=== PATIENT | male | born 1945 | race Caucasian/White ===

== ENCOUNTER → 2016-08-27 | Outpatient (CLI) | payer BC ==
[~2016-08-27] MED LIST: CHOL100027 PO; MULT-618 PO
--- NOTE | 2016-08-27 08:29 | DIAGNOSTIC IMAGING REPORT ---
ABDOMINAL ULTRASOUND COMPLETE HISTORY: Pain AB PAIN. COMPARISON: 01/29/2013 FINDINGS: Pancreas: The pancreas demonstrates a normal echotexture. Liver: Negative Gallbladder: No gallbladder wall thickening. No gallstones. CBD: 3 mm Kidneys: No hydronephrosis. Spleen: Normal in size. Aorta: Normal in caliber. IVC: Patent. IMPRESSION: No significant abnormality identified within the within the abdomen. Electronically signed by: Noah Cowart M.D. 08/27/2016 8:28 AM Dictated Date/Time: 08/27/2016 8:26 AM
== END | disposition home or self-care (01) ==
LOC: C.ULTR 07:58
PROVIDERS: ATTEND Internal Medicine Gastroenterology
DX: R10.9 Unspecified abdominal pain (principal); K59.00 Constipation, unspecified

== ENCOUNTER → 2016-12-10 | Outpatient (CLI) | payer BC | END | disposition home or self-care (01) | LOC: C.MAMM 13:08 | PROVIDERS: ATTEND Internal Medicine Geriatric Medicine | DX: M85.89 Other specified disorders of bone density and structure, multiple sites (principal) ==

== ENCOUNTER → 2016-12-14 | Outpatient (CLI) | payer BC | END | disposition home or self-care (01) | LOC: C.LABBC 15:25 | PROVIDERS: ATTEND Psychiatry & Neurology Neurology | DX: I67.9 Cerebrovascular disease, unspecified (principal); R41.9 Unspecified symptoms and signs involving cognitive functions and awareness ==

== ENCOUNTER → 2017-06-22 | Outpatient (CLI) | payer BC ==
--- NOTE | 2017-06-22 16:15 | DIAGNOSTIC IMAGING REPORT ---
L-SPINE MIN 4 VIEWS ROUTINE HISTORY: Pain LOWER BACK PAIN COMPARISON: None. FINDINGS: There is no fracture. No subluxation. Mild degenerative disc change throughout. No evidence for compression deformity. IMPRESSION: Mild degenerative disc change. No acute process. The above report was generated using voice recognition software. It may contain grammatical, syntax or spelling errors. Electronically signed by: Noah Cowart M.D. 06/22/2017 4:14 PM Dictated Date/Time: 06/22/2017 4:14 PM
== END | disposition home or self-care (01) ==
LOC: C.RADBC 15:27
PROVIDERS: ATTEND Internal Medicine Geriatric Medicine
DX: M54.10 Radiculopathy, site unspecified (principal); M54.5 Low back pain

== ENCOUNTER → 2017-06-28 | Outpatient (CLI) | payer BC ==
--- NOTE | 2017-06-28 10:22 | DIAGNOSTIC IMAGING REPORT ---
LUMBAR SPINE WITHOUT CT DOSE: 572.39 mGy.cm HISTORY: Pain. Radiculopathy. LUMBAR RADICULOPATHY TECHNIQUE: Multiaxial CT images of the lumbar spine were performed and reformatted in the sagittal and coronal plane without the use of contrast. A dose lowering technique was utilized adhering to the principles of ALARA. COMPARISON: None. FINDINGS: Vertebral body stature is considered normal throughout. Intervertebral disc spaces are well-preserved. L1-L2: No evidence for disc herniation or spinal stenosis. L2-L3: Minimal broad-based disc bulge. L3-L4. Mild broad-based disc bulge. L4-L5.: Moderate multifactorial narrowing of the spinal canal. Broad-based bulging disc. Mild narrowing neuroforamina bilaterally. L5-S1 mild central bulging disc. IMPRESSION: 1. Normal appearance to the vertebral bodies as well as intervertebral disc. 2. Multilevel bulging disc with mild multifactorial narrowing of the spinal canal at L4-L5 3. No evidence for a high-grade component of spinal or foraminal stenosis. The above report was generated using voice recognition software. It may contain grammatical, syntax or spelling errors. Electronically signed by: Noah Cowart M.D. 06/28/2017 10:21 AM Dictated Date/Time: 06/28/2017 10:16 AM
== END | disposition home or self-care (01) ==
LOC: C.CTS 09:54
PROVIDERS: ATTEND Internal Medicine Geriatric Medicine
DX: M54.16 Radiculopathy, lumbar region (principal)

== ENCOUNTER 2017-09-14 22:02 | Emergency (ER) | payer BC ==
[~2017-09-14] VITALS: Ht 165.1 cm; Wt 66.0 kg
[2017-09-14 22:04] VITALS: Ht 165.1 cm; Wt 66.0 kg
--- NOTE | 2017-09-14 22:41 | EMERGENCY ROOM VISIT NOTE ---
History Report prepared by Nichol: Cong Krueger Under the Supervision of: Dr. Nino Wooten M.D. First contact with patient: 22:16 Chief Complaint: CARDIAC ASSESSMENT Stated Complaint: CHEST DISCOMFORT;PACE MAKER History of Present Illness The patient is a 72 year old male who presents to the Emergency Room with complaints of intermittent excruciating sharp upper back pain that began about 30 minutes ago. His pain is currently significantly improved compared to when it began at a 2/10 in severity. He has a past medical history of a pacemaker in place and a circulatory problem in his left fingers. He denies any history of smoking, heart attacks, or diabetes. About a half hour ago, the patient was watching the [employer] when he suddenly experienced this pain between his shoulder blades. He also received a pain to her sternum as well. He notes that he ate spicy food and drank a beer 2.5 hours prior to this. He notes that he believes that he experienced this pain before, but it has never been this bad. After the pain began, the patient tried to relieve it with Tums and Mylanta without relief. He states that nothing made his pain better or worse. He denies any fevers, lightheadedness, dizziness, shortness of breath, abdominal pain, nausea, vomiting, weakness, numbness, leg swelling, or leg pain. He still has his gallbladder. He denies any recent long travel. He denies any blood thinner use. Source of History: patient Onset: 30 minutes ago Position: back (upper) Symptom Intensity: 2/10 Quality: sharp Timing: intermittent Associated Symptoms: + chest pain (sternal), No fevers, No SOB, No nausea, No vomiting, No weakness, No numbness Review of Systems See HPI for pertinent positives & negatives. A total of 10 systems reviewed and were otherwise negative. Past Medical & Surgical Medical Problems: (1) Bradycardia (2) Melanoma in situ (3) Obstruction of intestine (4) PAC (premature atrial contraction) (5) RBBB Surgical Problems: (1) S/P hernia repair Old medical records were reviewed. Nurse's notes were reviewed and I agree with. Family History Patient reports no known family medical history. Social History Smoking Status: Never Smoker Smokeless Tobacco Use: No Alcohol Use: occasionally Drug Use: none Marital Status: Housing Status: lives with family Occupation Status: retired Current/Historical Medications Scheduled Cholecalciferol (Vitamin D 1000 Unit), 1,000 INTER.UNIT PO DAILY Multiple Vitamins W/ Minerals (Centrum Silver Ultra Mens), 1 TAB PO DAILY Allergies Coded Allergies: Sulfa Antibiotics (Verified Allergy, Unknown, "SULFA DRUGS"-"HAPPENED A LONG TIME AGO"., 09/14/17) Physical Exam Vital Signs Date Time Temp Pulse Resp B/P (MAP) Pulse Ox O2 Delivery O2 Flow Rate FiO2 09/15/17 00:51 62 16 137/84 100 Room Air 09/15/17 00:04 63 16 129/81 98 Room Air 09/14/17 22:57 67 16 148/81 99 Room Air 09/14/17 22:43 61 09/14/17 22:26 99 Room Air 09/14/17 22:25 66 09/14/17 22:04 36.6 62 16 152/86 96 Room Air Physical Exam General: Non-ill appearing older male in no acute distress. HEENT: Normal cephalic atraumatic. Pupils are equal round and reactive to light. Extraocular movements are intact. Oropharynx is pink with moist mucous membranes. No swelling of the mouth lips or tongue. Neck: Supple with a midline trachea. No meningeal signs or stiffness, no JVD or bruits. No Stridor. Chest: Clear to auscultation bilaterally. No wheezes or rhonchi. No increased work of breathing. Pacemaker to the left upper chest. Heart: regular rate and rhythm. Abdomen: Soft nontender, nondistended without rebound guarding or rigidity. Extremities: No cyanosis clubbing or edema. No calf tenderness or assymetry. No swelling to the LUE. Normal pulse. Normal capillary refill. Spine/Back. Non tender to palpation. No CVA tenderness Skin: Good turgor without rashes. Neurologic exam: Cranial nerves two through 12 are intact. Motor and sensation are intact and symmetrical throughout. Medical Decision & Procedures ER Provider Diagnostic Interpretation: Radiology results as stated below per my review and radiologist interpretation: SINGLE VIEW CHEST CLINICAL HISTORY: Atypical chest pain. FINDINGS: An AP, portable, upright chest radiograph is compared to study dated 07/08/2016. The examination is mild degraded by portable technique and patient rotation. A 2-lead cardiac pacemaker is unchanged in position and partially obscures the left upper chest. The heart is mildly enlarged and there is atherosclerotic calcification of the thoracic aorta. The pulmonary vascular is noncongested. Bibasilar atelectasis is noted. No airspace consolidation or large pleural effusion is identified. No pneumothorax is seen. The skeletal structures are osteopenic. The bony thorax is grossly intact. IMPRESSION: 1. Cardiomegaly and cardiac pacemaker. There is no radiographic evidence of congestive failure. 2. No airspace consolidation or large pleural effusion is identified. Electronically signed by: Checo Cuello M.D. 09/14/2017 10:58 PM Dictated Date/Time: 09/14/2017 10:[address]: No evidence of PE or aortic dissection. Please refer to report Laboratory Results 09/14/17 22:20 Red Blood Count 4.70, Mean Corpuscular Volume 89.6, Mean Corpuscular Hemoglobin 31.7, Mean Corpuscular Hemoglobin Concent 35.4, Mean Platelet Volume 9.0, Neutrophils (%) (Auto) 47.0, Lymphocytes (%) (Auto) 41.0, Monocytes (%) (Auto) 9.7, Eosinophils (%) (Auto) 1.7, Basophils (%) (Auto) 0.4, Neutrophils # (Auto) 3.78, Lymphocytes # (Auto) 3.30, Monocytes # (Auto) 0.78, Eosinophils # (Auto) 0.14, Basophils # (Auto) 0.03 09/14/17 22:20 Test 09/14/17 22:20 09/14/17 22:32 09/14/17 23:44 White Blood Count 8.05 K/uL (4.8-10.8) Red Blood Count 4.70 M/uL (4.7-6.1) Hemoglobin 14.9 g/dL (14.0-18.0) Hematocrit 42.1 % (42-52) Mean Corpuscular Volume 89.6 fL (80-100) Mean Corpuscular Hemoglobin 31.7 pg (25-34) Mean Corpuscular Hemoglobin Concent 35.4 g/dl (32-36) Platelet Count 191 K/uL (130-400) Mean Platelet Volume 9.0 fL (7.4-10.4) Neutrophils (%) (Auto) 47.0 % Lymphocytes (%) (Auto) 41.0 % Monocytes (%) (Auto) 9.7 % Eosinophils (%) (Auto) 1.7 % Basophils (%) (Auto) 0.4 % Neutrophils # (Auto) 3.78 K/uL (1.4-6.5) Lymphocytes # (Auto) 3.30 K/uL (1.2-3.4) Monocytes # (Auto) 0.78 K/uL (0.11-0.59) Eosinophils # (Auto) 0.14 K/uL (0-0.5) Basophils # (Auto) 0.03 K/uL (0-0.2) RDW Standard Deviation 43.1 fL (36.4-46.3) RDW Coefficient of Variation 13.1 % (11.5-14.5) Immature Granulocyte % (Auto) 0.2 % Immature Granulocyte # (Auto) 0.02 K/uL (0.00-0.02) Prothrombin Time 10.5 SECONDS (9.0-12.0) Prothromb Time International Ratio 1.0 (0.9-1.1) Activated Partial Thromboplast Time 26.4 SECONDS (21.0-31.0) Partial Thromboplastin Ratio 1.0 Anion Gap 6.0 mmol/L (3-11) Est Creatinine Clear Calc Drug Dose 45.7 ml/min Estimated GFR () 64.2 Estimated GFR (Non- 55.4 BUN/Creatinine Ratio 18.0 (10-20) Calcium Level 8.7 mg/dl (8.5-10.1) Total Bilirubin 0.4 mg/dl (0.2-1) Direct Bilirubin 0.1 mg/dl (0-0.2) Aspartate Amino Transf (AST/SGOT) 27 U/L (15-37) Alanine Aminotransferase (ALT/SGPT) 35 U/L (12-78) Alkaline Phosphatase 57 U/L (45-117) Total Creatine Kinase 120 U/L (39-308) Creatine Kinase MB 2.1 ng/ml (0.5-3.6) Total Protein 7.2 gm/dl (6.4-8.2) Albumin 3.8 gm/dl (3.4-5.0) Lipase 190 U/L (73-393) Creatine Kinase MB Ratio (0-3.0) Bedside Troponin I < 0.030 ng/ml (0-0.045) Laboratory studies as stated above per my review. ECG Per My Interpretation Indication: chest pain, back/shoulder pain Rate (beats per minute): 70 Rhythm: other (Atrial Paced) Findings: no acute ischemic change, other (No significant prolongation of QTC) Comparison ECG Date: Jul 07, 2016 Change: Atrial paced has now replaced ventricular paced 2nd ECG: Normal sinus rhythm at 62, no ischemic changes or ectopy. RBBB. Compared to the first ECG, NSR has replaced atrial paced rhythm. ED Course 221: Past medical records reviewed. The patient was evaluated in room C11, and a complete history and physical examination were performed. 2316: The patient appears to be comfortable at this time. He does not need anything for his pain. 2353: Upon reevaluation, the patient is resting comfortably. Medical Decision Differentials include, but are not limited to; acute coronary syndrome, arrhythmia, GERD, anxiety, and aortic dissection. This patient comes in as described above. He had spicy food and a beer earlier tonight and had some pain in his abdomen into his back. It was sharp and he feels a lot better now he did take some Maalox. He has minimal discomfort at present. There is no shortness of breath or associated symptoms. He does have a pacemaker but has no other cardiac disease known he had no syncope or lightheadedness or dizziness. EKG shows a paced rhythm without ischemic changes at his second EKG and it shows a normal sinus rhythm without ischemic changes of a baseline right bundle branch block. This was old when compared to previous EKGs. Chest x-ray was unremarkable. His initial troponin was 0. A follow-up troponin was also 0. There is no change between the EKGs or troponins. I did a chest CT. He has no white count or fever to suggest infection is no acute electrolyte or metabolic abnormality. He has nothing to suggest liver, gallbladder, or pancreas disease. He has no shortness of breath or anything to suggest PE. The chest CT shows no evidence of dissection or PE or any other pulmonary problem. Most likely his symptoms are GI related I talked to both the patient and his at length he cannot 100% rule out cardiac disease he strongly desires to go home. I think that is reasonable at this point with close follow-up recommended follow-up with his doctor Dr. Hughes or his lpn private duty Dr. Burgess in the next day or so and if deemed necessary he may ultimately need a stress test. He should return to the ER if increasing pain, worsening symptoms, any new problems or concerns and have a mild diet. The patient and his were happy with the plan and he was discharged home. Medication Reconcilliation Current Medication List: was personally reviewed by me Blood Pressure Screening Patient's blood pressure: Normal blood pressure Blood pressure disposition: Did not require urgent referral Impression Primary Impression: Epigastric abdominal pain Scribe Attestation The scribe's documentation has been prepared under my direction and personally reviewed by me in its entirety. I confirm that the note above accurately reflects all work, treatment, procedures, and medical decision making performed by me. Departure Information Dispostion Home / Self-Care Referrals Ming Hughes M.D. (PCP) Forms IMPORTANT VISIT INFORMATION Patient Instructions My [facility]
[2017-09-14 22:44] LABS: BASO % 0.4 %; BASO ABS # 0.03 K/uL (0-0.2); EOS % 1.7 %; EOS ABS # 0.14 K/uL (0-0.5); HEMATOCRIT 42.1 % (42-52); HEMOGLOBIN 14.9 g/dL (14.0-18.0); IG# 0.02 K/uL (0.00-0.02); MEAN CELL VOLUME 89.6 fL (80-100); MEAN CORPUSCULAR HEMOGLOBIN 31.7 pg (25-34); MEAN CORPUSCULAR HGB CONC 35.4 g/dl (32-36); MONO % 9.7 %; MONO ABS # 0.78 K/uL (0.11-0.59); NEUT ABS # 3.78 K/uL (1.4-6.5); PLATELET COUNT 191 K/uL (130-400); RED CELL DISTRIBUTION WIDTH CV 13.1 % (11.5-14.5); RED CELL DISTRIBUTION WIDTH SD 43.1 fL (36.4-46.3); WHITE BLOOD COUNT 8.05 K/uL (4.8-10.8)
[2017-09-14 22:52] LABS: ALBUMIN 3.8 gm/dl (3.4-5.0); CALCIUM 8.7 mg/dl (8.5-10.1); CREATININE 1.29 mg/dl (0.60-1.40); POTASSIUM 3.6 mmol/L (3.5-5.1)
[2017-09-14 22:57] LABS: CKMB 2.1 ng/ml (0.5-3.6); TOTAL PROTEIN 7.2 gm/dl (6.4-8.2)
[2017-09-14 22:59] LABS: PTT PATIENT 26.4 SECONDS (21.0-31.0)
--- NOTE | 2017-09-14 22:59 | DIAGNOSTIC IMAGING REPORT ---
SINGLE VIEW CHEST CLINICAL HISTORY: Atypical chest pain. FINDINGS: An AP, portable, upright chest radiograph is compared to study dated 07/08/2016. The examination is mild degraded by portable technique and patient rotation. A 2-lead cardiac pacemaker is unchanged in position and partially obscures the left upper chest. The heart is mildly enlarged and there is atherosclerotic calcification of the thoracic aorta. The pulmonary vascular is noncongested. Bibasilar atelectasis is noted. No airspace consolidation or large pleural effusion is identified. No pneumothorax is seen. The skeletal structures are osteopenic. The bony thorax is grossly intact. IMPRESSION: 1. Cardiomegaly and cardiac pacemaker. There is no radiographic evidence of congestive failure. 2. No airspace consolidation or large pleural effusion is identified. Electronically signed by: Checo Cuello M.D. 09/14/2017 10:58 PM Dictated Date/Time: 09/14/2017 10:57 PM
[2017-09-14] MEDS ORDERED: OPTIRAY 320 IV PRN (23:30)
[2017-09-15 00:51] VITALS: BP 137/84; PULSE 62; O2SAT 100
--- NOTE | 2017-09-15 06:59 | DIAGNOSTIC IMAGING REPORT ---
CHEST COMBO ANGIO DISSECTION CLINICAL HISTORY: Chest discomfort. Pacemaker. COMPARISON STUDY: Chest radiograph July 08, 2016. TECHNIQUE: Unenhanced and arterial phase imaging of the chest was performed. Injection of 92 cc Optiray 320 IV was uneventful. Sagittal and coronal reconstructions were reviewed as well as maximal intensity projections on an independent 3-D workstation. FINDINGS: A dual lead left-sided pacemaker is in place. The caliber of the thoracic aorta is normal. There is no evidence for intramural hematoma or dissection within the thoracic aorta. Size of the heart is at the upper limits of normal. There is moderate coronary artery calcification. A small hiatal hernia is noted. No pneumomediastinum is present. No enlarged thoracic lymph nodes are present. Central airways are patent. There is no consolidation to suggest pneumonia. Linear and groundglass opacities reflect atelectasis. Bony thorax is unremarkable. 1 cm hypervascular splenic lesion was present on CT of August 03, 2006. Therefore, this is benign. No central pulmonary emboli are identified. The remainder of the pulmonary arteries are suboptimally assessed due to suboptimal opacification. IMPRESSION: 1. No thoracic aortic dissection. 2. No acute intrathoracic findings. Electronically signed by: Humberto Rebolledo M.D. 09/15/2017 6:58 AM Dictated Date/Time: 09/15/2017 6:51 AM
== END 2017-09-15 01:02 | disposition home or self-care (01) ==
LOC: C.EDB 22:04 → C.EDC 09-15 01:02
DX: R10.13 Epigastric pain (principal); I45.10 Unspecified right bundle-branch block; Z95.0 Presence of cardiac pacemaker; Z87.19 Personal history of other diseases of the digestive system; Z88.2 Allergy status to sulfonamides

== ENCOUNTER → 2017-11-26 | Outpatient (CLI) | payer BC ==
[2017-11-26 11:37] LABS: BLOOD UREA NITROGEN 20 mg/dl (7-18); CALCIUM 8.8 mg/dl (8.5-10.1); CARBON DIOXIDE 31 mmol/L (21-32); CREATININE 1.09 mg/dl (0.60-1.40); GLUCOSE 118 mg/dl (70-99); POTASSIUM 4.3 mmol/L (3.5-5.1); SODIUM 136 mmol/L (136-145)
[2017-11-26 11:43] LABS: CHOLESTEROL 239 mg/dl (0-200); LDL CHOLESTEROL CALCULATED 152 mg/dl
== END | disposition home or self-care (01) ==
LOC: C.LABBC 08:44
PROVIDERS: ATTEND Internal Medicine Geriatric Medicine
DX: E78.5 Hyperlipidemia, unspecified (principal); N40.1 Benign prostatic hyperplasia with lower urinary tract symptoms; R03.0 Elevated blood-pressure reading, without diagnosis of hypertension

== ENCOUNTER → 2018-02-10 | Outpatient (CLI) | payer BC ==
[2018-02-10 17:11] LABS: BASO % 0.3 %; BASO ABS # 0.02 K/uL (0-0.2); EOS % 0.3 %; EOS ABS # 0.02 K/uL (0-0.5); HEMATOCRIT 43.1 % (42-52); HEMOGLOBIN 15.1 g/dL (14.0-18.0); IG# 0.02 K/uL (0.00-0.02); LYMPH % 25.7 %; LYMPH ABS # 2.01 K/uL (1.2-3.4); MEAN CORPUSCULAR HEMOGLOBIN 31.5 pg (25-34); MEAN PLATELET VOLUME 9.7 fL (7.4-10.4); MONO % 7.7 %; NEUT % 65.7 %; NEUT ABS # 5.15 K/uL (1.4-6.5); PLATELET COUNT 214 K/uL (130-400); RED CELL DISTRIBUTION WIDTH SD 42.7 fL (36.4-46.3); WHITE BLOOD COUNT 7.82 K/uL (4.8-10.8)
[2018-02-10 17:31] LABS: ALBUMIN 3.9 gm/dl (3.4-5.0); ALKALINE PHOSPHATASE 55 U/L (45-117); ALT/SGPT 25 U/L (12-78); AST/SGOT 22 U/L (15-37); BLOOD UREA NITROGEN 15 mg/dl (7-18); CALCIUM 8.7 mg/dl (8.5-10.1); CARBON DIOXIDE 29 mmol/L (21-32); CREATININE 0.96 mg/dl (0.60-1.40); GLUCOSE 107 mg/dl (70-99); POTASSIUM 3.9 mmol/L (3.5-5.1); SODIUM 134 mmol/L (136-145); TOTAL PROTEIN 7.2 gm/dl (6.4-8.2)
[2018-02-11 06:50] LABS: HEMOGLOBIN A1C 5.7 % (4.5-5.6)
== END | disposition home or self-care (01) ==
LOC: C.LABBC 15:10
PROVIDERS: ATTEND Internal Medicine Geriatric Medicine
DX: R00.2 Palpitations (principal); G31.84 Mild cognitive impairment of uncertain or unknown etiology; I67.9 Cerebrovascular disease, unspecified; R73.9 Hyperglycemia, unspecified; M47.812 Spondylosis without myelopathy or radiculopathy, cervical region

== ENCOUNTER → 2018-02-22 | Outpatient (CLI) | payer BC ==
[~2018-02-22] MED LIST changes: +GADAVIST IV PRN
--- NOTE | 2018-02-22 13:59 | DIAGNOSTIC IMAGING REPORT ---
Brain MRI WITH AND WITHOUT CONTRAST HISTORY: Headache. G31.84 Mild cognitive [id number] Cerebrovascular diseaseMRI TECHNIQUE: Multiplanar multisequence MRI of the brain was performed both before and after the intravenous administration of contrast. COMPARISON STUDY: Brain MRI 06/12/2015. FINDINGS: There is no mass, hematoma, midline shift, or acute infarct. The paranasal sinuses are clear. The mastoid air cells are clear. The ventricles and sulci demonstrate mild age-related involutional changes. Scattered foci of T2 hyperintensity seen within the periventricular and subcortical white matter are nonspecific but suggestive of moderate microvascular ischemic changes. This is similar to the prior study. 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 The major vascular flow voids at the skull base are well-maintained. No abnormal enhancement. IMPRESSION: 1. No significant change compared to the prior study. 2. No acute intracranial abnormality. 3. Moderate microvascular ischemic changes are again noted. 4. Old right basal ganglia infarct. Electronically signed by: Gildardo Bruno M.D. 02/22/2018 1:58 PM Dictated Date/Time: 02/22/2018 1:40 PM
== END | disposition home or self-care (01) ==
LOC: C.MRI 11:55
PROVIDERS: ATTEND Internal Medicine Geriatric Medicine
DX: G31.84 Mild cognitive impairment of uncertain or unknown etiology (principal); I67.9 Cerebrovascular disease, unspecified